=== PATIENT | female | born 1945 | race Caucasian/White ===

== ENCOUNTER → 2016-08-08 | Outpatient (CLI) | payer MEDICARE, OTHER | END | disposition home or self-care (01) | LOC: GMAL 10:54 | PROVIDERS: ATTEND Family Medicine | DX: D51.3 Other dietary vitamin B12 deficiency anemia (principal); E55.9 Vitamin D deficiency, unspecified; M06.9 Rheumatoid arthritis, unspecified ==

== ENCOUNTER → 2017-07-01 | Outpatient (CLI) | payer MEDICARE, OTHER | LOC: GMAL 15:36 | PROVIDERS: ATTEND Family Medicine | DX: N30.00 Acute cystitis without hematuria (principal) ==

== ENCOUNTER → 2017-08-26 | Outpatient (CLI) | payer MEDICARE, OTHER ==
--- NOTE | 2017-08-26 13:18 | CT ---
Procedure: CT ABDOMEN PELVIS WITHOUT IV CONTRAST Exam Date: 08/26/2017 Ordering Provider: DEXTER OROURKE Clinical Indication: MICROHEMATURIA Comparison: None TECHNIQUE: 5 mm images were taken through the abdomen and pelvis without the administration of nonionic intravenous contrast material. Oral contrast was not administered. Coronal and sagittal reformatted images were generated. This exam was performed according to our departmental dose optimization program which includes use of automated exposure control, adjustment of the mA and/or kV according to patient size and/or use of iterative reconstruction technique. FINDINGS: Lower chest: Nonacute Abdomen: Liver and biliary system: Unremarkable. No calcified gallstones. Spleen: Unremarkable Pancreas: Unremarkable Adrenal glands: Unremarkable Kidneys, ureters, bladder: No hydronephrosis in either kidney. Punctate cortical calcifications in the right kidney. Subcentimeter lesion in the right kidney is too small to characterize. Suggested parapelvic cysts on the left. Lobulated exophytic lesion in the left kidney measures 15 Hounsfield units and measures roughly 2.8 cm, likely a cyst. 3 mm nonobstructing stone in the left renal collecting system. No ureteral stones visualized. Bladder is unremarkable. Lymph nodes: No lymphadenopathy Retroperitoneum, abdominal wall, peritoneal cavity: No ascites. No free intraperitoneal air. Probable lipoma in the left hip soft tissues. Vessels: Extensive calcified atherosclerotic plaque in the aorta and its branch vessels. No abdominal aortic aneurysm. Aorta is ectatic. Pelvis: Lymph nodes: No lymphadenopathy Bowel: No bowel obstruction. Colonic diverticulosis without evidence of diverticulitis. Pelvic organs: Prior hysterectomy. Bones: Nonacute. 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 IMPRESSION: 1. 3 mm nonobstructing stone in the left renal collecting system. No hydronephrosis in either kidney. 2. Probable left parapelvic cysts with an additional 2.8 cm exophytic left renal cyst. 3. Colonic diverticulosis without evidence of diverticulitis. Electronically signed by: Sergio Fajardo MD 08/26/2017 1:16 PM CDT
== END ==
LOC: RAD 11:55
PROVIDERS: ATTEND Physician Assistant
DX: R31.21 Asymptomatic microscopic hematuria (principal); R30.0 Dysuria; N20.0 Calculus of kidney; K57.90 Diverticulosis of intestine, part unspecified, without perforation or abscess without bleeding; N28.1 Cyst of kidney, acquired

== ENCOUNTER → 2017-10-21 | Outpatient (CLI) | payer MEDICARE, OTHER | LOC: GMAL 10:53 | PROVIDERS: ATTEND Family Medicine | DX: D51.3 Other dietary vitamin B12 deficiency anemia (principal); R53.83 Other fatigue; E55.9 Vitamin D deficiency, unspecified ==

== ENCOUNTER → 2018-02-26 | Outpatient (CLI) | payer MEDICARE, OTHER | LOC: GMAL 10:52 | PROVIDERS: ATTEND Family Medicine | DX: E55.9 Vitamin D deficiency, unspecified (principal) ==

== ENCOUNTER → 2018-06-16 | Outpatient (CLI) | payer MEDICARE, OTHER ==
--- NOTE | 2018-06-17 11:01 | CT ---
Procedure: CT UPPER EXTREMITY ANGIOGRAPHY WITH IV CONTRAST Exam Date: 06/16/2018 Ordering Provider: Allan Spivey Clinical Indication: PVD Comparison: None Technique: Using a helical scanner, sequential axial imaging of the left upper extremity arteries to the hand were obtained following the administration of intravenous contrast. The exam was reconstructed at 2.5 mm slice thickness. At an independent workstation 3-D reconstructions of the left upper extremity arteries was obtained. This exam was performed according to our departmental dose optimization program which includes use of automated exposure control, adjustment of the mA and/or kV according to patient size and/or use of iterative reconstruction technique. Findings: Review of conventional CT imaging was obtained. Multiple left renal cysts visualized. The visualized left subclavian artery is patent without stenosis. The left axillary artery is patent without significant stenosis. The left brachial artery is patent without significant stenosis. The left radial artery is patent to the hand without significant stenosis. The left ulnar artery is patent to the distal aspect of the forearm with no appreciable flow at the level of the wrist. The interosseous artery appears patent. The palmar and digital branches are not opacified. Impression: 1. Left ulnar artery is patent to the distal aspect of the forearm with no appreciable flow at the level of the wrist. 2. Left renal cysts. Electronically signed by: Sergio Fajardo MD 06/17/2018 10:59 AM CDT
== END ==
LOC: CT 13:13
PROVIDERS: ATTEND Family Medicine
DX: I73.9 Peripheral vascular disease, unspecified (principal); N28.1 Cyst of kidney, acquired

== ENCOUNTER → 2019-03-19 | Outpatient (CLI) | payer MEDICARE, OTHER ==
--- NOTE | 2019-03-19 13:20 | RAD ---
EXAM DESCRIPTION: Chest,2 Views: CR/DR CLINICAL HISTORY: 73 years Female COUGH COMPARISON: Chest x-ray May 2018. 2 views TECHNIQUE: Two views. PA and Lateral. FINDINGS: Lungs: Hyperinflation bilaterally with dilated airspaces. Prominent interstitial markings in the bilateral bases and peripheral mid lungs. No acute infiltrate. Pleural spaces: No effusion or pneumothorax bilaterally. Heart: Normal size. Pulmonary Vascularity: Not increased. Mediastinum: Not widened. Aorta: Unremarkable. Bony Thorax/Spine: No acute bony thoracic abnormalities. IMPRESSION: Senescent chest. Emphysematous changes/COPD. No acute infiltrate. Stable from May 2018. Electronically signed by: Octavio Walker MD 03/19/2019 1:18 PM [employer]
== END ==
LOC: YCFC.O 12:08
PROVIDERS: ATTEND Nurse Practitioner
DX: R05 Cough (principal); J43.9 Emphysema, unspecified

== ENCOUNTER → 2019-11-30 | Outpatient (CLI) | payer MEDICARE, OTHER | LOC: GMAL 10:52 | PROVIDERS: ATTEND Family Medicine | DX: D51.3 Other dietary vitamin B12 deficiency anemia (principal); E55.9 Vitamin D deficiency, unspecified; R53.83 Other fatigue; I10 Essential (primary) hypertension; Z79.899 Other long term (current) drug therapy ==